=== PATIENT | female | born 1950 | race Caucasian/White ===

== ENCOUNTER 2021-03-28 12:42 | Emergency (ER) | payer OTHER ==
[~2021-03-28] VITALS: Ht 157.5 cm; Wt 90.5 kg
[2021-03-28] MEDS ORDERED: folic acid PO (13:13)
[2021-03-28] MEDS ORDERED: vitamin b PO (13:13)
[2021-03-28] MEDS ORDERED: ACETAMINOPHEN TAB 650MG DOSE (2X325MG) PO ONE (14:40)
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
[2021-03-28 18:38] VITALS: BP 180/74
== END 2021-03-28 22:23 | disposition home or self-care (01) ==
LOC: EDBD 12:42 → EDSEX 12:42 → M ED 12:42
DX: S92.135A Nondisplaced fracture of posterior process of left talus, initial encounter for closed fracture (principal); S80.211A Abrasion, right knee, initial encounter; S80.212A Abrasion, left knee, initial encounter; V49.50XA Passenger injured in collision with unspecified motor vehicles in traffic accident, initial encounter; M77.32 Calcaneal spur, left foot